=== PATIENT | female | born 1940 | race Caucasian/White ===

== ENCOUNTER 2021-06-01 18:50 | Inpatient (IN) | payer MEDICARE ==
[~2021-06-01] VITALS: Ht 157.5 cm; Wt 67.8 kg
[2021-06-01] MEDS ORDERED: pantoprazole 40MG/NS 100ML BAG 100 ML IV ONE (18:55)
[2021-06-01] MEDS ORDERED: pantoprazole IV 80 MG in normal saline 100ml IV soln 100 ML IV ONE (18:55)
[2021-06-01] MEDS ORDERED: pantoprazole 40 MG vial IV ONE (19:20)
[2021-06-01 19:42] LABS: BASOPHILS % (AUTO) 0.2 % (0-1); EOSINOPHILS % (AUTO) 0.2 % (0-6); HEMOGLOBIN 7.4 g/dl (12.0-16.0); LYMPHOCYTES # (AUTO) 0.9 X10'3 (1.1-4.8); LYMPHOCYTES % (AUTO) 17.9 % (21-51); MEAN CORPUSCULAR HEMOGLOBIN 32.4 PG (27.0-31.0); MEAN CORPUSCULAR HGB CONC 33.4 g/dL (33.0-36.5); MEAN CORPUSCULAR VOLUME 96.9 FL (78-98); MONOCYTES # (AUTO) 0.1 X10'3 (0-0.9); MONOCYTES % (AUTO) 2.1 % (2-12); NEUTROPHILS # (AUTO) 4.2 X10'3 (1.8-7.7); NEUTROPHILS % (AUTO) 79.6 % (42-75); PLATELET COUNT 110 X10'3 (140-440); RED BLOOD COUNT 2.27 X10'6 (4.20-5.60); RED CELL DISTRIBUTION WIDTH 15.7 % (11.5-14.5); WHITE BLOOD COUNT 5.3 X10'3 (4.5-11.0)
[2021-06-01 19:56] LABS: CLARITY,URINE SLIGHTLY CLOUDY (Clear); COLOR,URINE STRAW (Yellow); GLUCOSE, URINE NEGATIVE (Neg); KETONES,URINE NEGATIVE (Neg); LEUKOCYTE ESTERASE ,URINE SMALL (Neg); NITRITES, URINE NEGATIVE (Neg); OCCULT BLOOD,URINE MODERATE (Neg); PROTEIN,URINE 100 mg/dl (Neg); UA COLLECTION TYPE FOLEY CATH; UROBILINOGEN,URINE 0.2 E.U/dL (0.2-1.0)
[2021-06-01 19:58] LABS: PARTIAL THROMBOPLASTIN TIME 27 SECONDS (22-32)
[2021-06-01 19:58] LABS: SQUAMOUS EPITHELIAL CELL,UR FEW /LPF (FEW)
[2021-06-01 19:59] LABS: WBC,URINE 0-4 /HPF (0-4)
[2021-06-01 20:01] LABS: AMORPHOUS URATES 1+; BACTERIA,URINE NONE SEEN /HPF (Neg)
[2021-06-01 20:21] LABS: ALANINE AMINOTRANSFERASE 9 U/L (12-78); ALBUMIN 1.9 G/DL (3.4-5.0); ALKALINE PHOSPHATASE 42 IU/L (46-116); ANION GAP 23 (8-16); ASPARTATE AMINO TRANSFERASE 13 U/L (10-37); BILIRUBIN,TOTAL 0.4 MG/DL (0.1-1.0); CALCIUM 9.5 MG/DL (8.5-10.1); CHLORIDE 94 MMOL/L (99-107); CREATININE 18.41 MG/DL (0.40-0.90); GLUCOSE 80 MG/DL (70-104); POTASSIUM 5.9 MMOL/L (3.5-5.1); SODIUM 127 MMOL/L (135-145); eGFR 2 ML/MIN
[2021-06-01 20:30] LABS: ALBUMIN/GLOBULIN RATIO 0.2 (1.1-1.5); BLOOD UREA NITROGEN 180 MG/DL (7-18); BUN/CREATININE RATIO 9.8 (6.6-38.0); TOTAL PROTEIN 13.7 G/DL (6.4-8.2)
--- NOTE | 2021-06-01 20:33 | NUR ---
LAB CALLED CRITICAL CO2 10.4; RN NOTIFIED
[2021-06-01 20:34] LABS: TOTAL CARBON DIOXIDE 10.4 MMOL/L (24-32)
[2021-06-01] MEDS ORDERED: calcium chloride 100 MG/1 ML inj IV ONE (21:05)
[2021-06-01 21:56] LABS: ABG BASE EXCESS -16.2 mmol/L (-2.0-2.0); ABG OXYGEN SATURATION 96.8 % (94-97); ABG PO2 (T) 98.4 mmHg (75.0-100.0); FCOHb 0.9 % (0.0-3.9); FMetHb 0.3 % (0.0-1.5); FO2Hb 95.6 % (94-97); TOTAL HEMOGLOBIN 7.5 G/dl (12.0-16.0)
[2021-06-01 22:17] LABS: RED BLOOD COUNT 2.11 X10'6 (4.20-5.60); RETICULOCYTE % (AUTO) 1.1 % (0.5-1.5)
[2021-06-01 22:23] LABS: % IRON SATURATION 449 % (11-46); IRON 579 UG/DL (49-151); TOTAL IRON BINDING CAPACITY 129 UG/DL (259-388)
[2021-06-01 22:33] LABS: PHOSPHORUS 9.4 MG/DL (2.3-4.5)
[2021-06-01] MEDS: sodium bicarbonate (8.4%) inj. 150 MEQ in dextrose 5%-water 1,000 ML IV SCH (23:29)
[2021-06-02] MEDS: heparin, porcine 5000 units/ml vial SQ SCH ×3 (00:34→15:57)
[2021-06-02 01:13] LABS: CREATINE KINASE 144 U/L (26-192)
[2021-06-02] MEDS ORDERED: CLOT30CR19 TP (01:45)
[2021-06-02] MEDS ORDERED: LOSA50TA64 PO (01:45)
[2021-06-02] MEDS ORDERED: SUCR1TAB PO (01:45)
[2021-06-02] MEDS ORDERED: RALO60TA13 PO (01:45)
[2021-06-02] MEDS ORDERED: ROSU20TA31 PO (01:45)
[2021-06-02] MEDS ORDERED: OMEP40CA21 PO (01:45)
[2021-06-02] MEDS ORDERED: LEVO75TA7 PO (01:45)
[2021-06-02 04:43] LABS: BASOPHILS % (AUTO) 0.4 % (0-1); EOSINOPHILS % (AUTO) 0.3 % (0-6); LYMPHOCYTES # (AUTO) 0.8 X10'3 (1.1-4.8); LYMPHOCYTES % (AUTO) 14.5 % (21-51); MEAN CORPUSCULAR HEMOGLOBIN 32.4 PG (27.0-31.0); MEAN CORPUSCULAR HGB CONC 34.5 g/dL (33.0-36.5); MEAN PLATELET VOLUME 7.5 FL (7.4-10.4); MONOCYTES # (AUTO) 0.1 X10'3 (0-0.9); MONOCYTES % (AUTO) 2.2 % (2-12); NEUTROPHILS # (AUTO) 4.3 X10'3 (1.8-7.7); NEUTROPHILS % (AUTO) 82.6 % (42-75); PLATELET COUNT 108 X10'3 (140-440); RED BLOOD COUNT 2.12 X10'6 (4.20-5.60); RED CELL DISTRIBUTION WIDTH 16.2 % (11.5-14.5); WHITE BLOOD COUNT 5.2 X10'3 (4.5-11.0)
[2021-06-02 04:46] LABS: HEMOGLOBIN 6.9 g/dl (12.0-16.0)
[2021-06-02 04:47] LABS: HEMATOCRIT 19.9 % (35.0-45.0)
--- NOTE | 2021-06-02 04:59 | NUR ---
PAGE TO DR. COHEN WITH CRITICAL LAB VALUES PAGER ID: [phone] MESSAGE: BED #4 [facility]. CRITICAL AM LABS WITH HGB 6.9 AND HEMATOCRIT 19.9 THANKS, ALEX 0646
[2021-06-02 05:10] LABS: ALANINE AMINOTRANSFERASE 9 U/L (12-78); ALBUMIN 1.7 G/DL (3.4-5.0); ALKALINE PHOSPHATASE 41 IU/L (46-116); ANION GAP 20 (8-16); ASPARTATE AMINO TRANSFERASE 15 U/L (10-37); BILIRUBIN,TOTAL 0.5 MG/DL (0.1-1.0); CALCIUM 8.8 MG/DL (8.5-10.1); CHLORIDE 93 MMOL/L (99-107); GLUCOSE 142 MG/DL (70-104); MAGNESIUM 1.3 MG/DL (1.5-2.4); PHOSPHORUS 8.9 MG/DL (2.3-4.5); POTASSIUM 4.6 MMOL/L (3.5-5.1); SODIUM 128 MMOL/L (135-145); TOTAL CARBON DIOXIDE 15.1 MMOL/L (24-32); eGFR 2 ML/MIN
[2021-06-02 05:11] LABS: ALBUMIN/GLOBULIN RATIO 0.2 (1.1-1.5); BLOOD UREA NITROGEN 155 MG/DL (7-18); BUN/CREATININE RATIO 9.1 (6.6-38.0); TOTAL PROTEIN 12.5 G/DL (6.4-8.2)
--- NOTE | 2021-06-02 08:21 | NUR ---
dr moise at . verbal order to give pt epo 20,000 x 1. ok to downgrade to pcu. cn notified
[2021-06-02] MEDS ORDERED: EPOETIN ALFA-EPBX 20,000 UNIT/ML 1 ML MDV SQ ONE (08:30)
[2021-06-02 11:39] LABS: CLARITY,URINE SLIGHTLY CLOUDY (Clear); COLOR,URINE STRAW (Yellow); GLUCOSE, URINE NEGATIVE (Neg); KETONES,URINE NEGATIVE (Neg); LEUKOCYTE ESTERASE ,URINE SMALL (Neg); NITRITES, URINE NEGATIVE (Neg); OCCULT BLOOD,URINE LARGE (Neg); PROTEIN,URINE 30 mg/dl (Neg); UA COLLECTION TYPE FOLEY CATH; UROBILINOGEN,URINE 0.2 E.U/dL (0.2-1.0)
[2021-06-02 11:53] LABS: TOTAL PROTEIN,URINE RANDOM 111.5 MG/DL
[2021-06-02 12:02] LABS: SQUAMOUS EPITHELIAL CELL,UR FEW /LPF (FEW)
[2021-06-02 12:04] LABS: BACTERIA,URINE FEW /HPF (Neg)
[2021-06-02] MEDS: sodium bicarbonate (8.4%) inj. 150 MEQ in dextrose 5%-water 1,000 ML IV SCH ×3 (12:30→20:32)
[2021-06-02 13:17] LABS: % IRON SATURATION 399 % (11-46); IRON 475 UG/DL (49-151); TOTAL IRON BINDING CAPACITY 119 UG/DL (259-388)
[2021-06-02 13:24] LABS: UA EOSINOPHILS NO EOS /HPF
--- NOTE | 2021-06-02 15:25 | NUR ---
CALL DAUGHTER VONNIE BARKER [phone] JANE [phone]
--- NOTE | 2021-06-02 15:33 | NUR ---
PT ASSISTED TO POSIITION OF COMFORT.
[2021-06-02 16:35] LABS: ALANINE AMINOTRANSFERASE 11 U/L (12-78); ALBUMIN 1.5 G/DL (3.4-5.0); ALBUMIN/GLOBULIN RATIO 0.2 (1.1-1.5); ALKALINE PHOSPHATASE 40 IU/L (46-116); ANION GAP 17 (8-16); ASPARTATE AMINO TRANSFERASE 18 U/L (10-37); BILIRUBIN,TOTAL 0.4 MG/DL (0.1-1.0); CALCIUM 8.2 MG/DL (8.5-10.1); CHLORIDE 95 MMOL/L (99-107); CREATININE 17.94 MG/DL (0.40-0.90); GLUCOSE 146 MG/DL (70-104); POTASSIUM 4.7 MMOL/L (3.5-5.1); SODIUM 131 MMOL/L (135-145); TOTAL PROTEIN 11.3 G/DL (6.4-8.2); eGFR 2 ML/MIN
[2021-06-02 16:36] LABS: BLOOD UREA NITROGEN 174 MG/DL (7-18); BUN/CREATININE RATIO 9.7 (6.6-38.0)
[2021-06-03] VITALS (9 sets, daily range): BP systolic 134–174; BP diastolic 59–91
[2021-06-03] MEDS: heparin, porcine 5000 units/ml vial SQ SCH ×2 (00:21→08:00)
[2021-06-03] MEDS: sodium bicarbonate (8.4%) inj. 150 MEQ in dextrose 5%-water 1,000 ML IV SCH ×3 (03:50→23:51)
[2021-06-03 06:43] LABS: BASOPHILS % (AUTO) 0.1 % (0-1); EOSINOPHILS # (AUTO) 0.1 X10'3 (0-0.9); EOSINOPHILS % (AUTO) 1.5 % (0-6); LYMPHOCYTES # (AUTO) 0.5 X10'3 (1.1-4.8); LYMPHOCYTES % (AUTO) 14.4 % (21-51); MEAN CORPUSCULAR HEMOGLOBIN 32.2 PG (27.0-31.0); MEAN CORPUSCULAR VOLUME 92.2 FL (78-98); MEAN PLATELET VOLUME 7.4 FL (7.4-10.4); MONOCYTES % (AUTO) 1.3 % (2-12); NEUTROPHILS # (AUTO) 2.8 X10'3 (1.8-7.7); NEUTROPHILS % (AUTO) 82.7 % (42-75); PLATELET COUNT 86 X10'3 (140-440); RED BLOOD COUNT 1.92 X10'6 (4.20-5.60); RED CELL DISTRIBUTION WIDTH 16.1 % (11.5-14.5); WHITE BLOOD COUNT 3.4 X10'3 (4.5-11.0)
--- NOTE | 2021-06-03 06:51 | NUR ---
Patient in room PCU 3014. I have received report from Glory MATTHEW and had the opportunity to ask questions and assume patient care.
[2021-06-03 07:25] LABS: HEMOGLOBIN 6.2 g/dl (12.0-16.0)
[2021-06-03 07:26] LABS: HEMATOCRIT 17.7 % (35.0-45.0)
[2021-06-03 07:28] LABS: ANISOCYTOSIS 1+; HYPOCHROMASIA 1+; PLATELET ESTIMATE DECREASED; POLYCHROMASIA 1+
[2021-06-03 07:29] LABS: ROULEAUX 1+; TARGET CELLS 1+
[2021-06-03 08:06] LABS: ALANINE AMINOTRANSFERASE 9 U/L (12-78); ALBUMIN 1.4 G/DL (3.4-5.0); ALBUMIN/GLOBULIN RATIO 0.2 (1.1-1.5); ALKALINE PHOSPHATASE 36 IU/L (46-116); ANION GAP 18 (8-16); ASPARTATE AMINO TRANSFERASE 18 U/L (10-37); BILIRUBIN,TOTAL 0.4 MG/DL (0.1-1.0); CALCIUM 7.7 MG/DL (8.5-10.1); CHLORIDE 92 MMOL/L (99-107); GLUCOSE 164 MG/DL (70-104); MAGNESIUM 1.3 MG/DL (1.5-2.4); SODIUM 132 MMOL/L (135-145); TOTAL CARBON DIOXIDE 22.4 MMOL/L (24-32); TOTAL PROTEIN 10.7 G/DL (6.4-8.2); eGFR 2 ML/MIN
[2021-06-03 08:10] LABS: BLOOD UREA NITROGEN 166 MG/DL (7-18); BUN/CREATININE RATIO 9.5 (6.6-38.0)
[2021-06-03] MEDS ORDERED: heparin 1,000 units/ml 10ml inj HE ONE (10:35)
[2021-06-03] MEDS ORDERED: normal saline 1000ml 100 ML IV PRN (10:35)
[2021-06-03] MEDS ORDERED: EPOETIN ALFA-EPBX 20,000 UNIT/ML 1 ML MDV IV ONE (10:35)
[2021-06-03] MEDS: pantoprazole 40mg Tablet.DR PO SCH (11:46)
[2021-06-03] MEDS: atorvastatin 20mg tablet PO SCH (11:46)
[2021-06-03] MEDS: acetaminophen 325mg tablet PO PRN (14:04)
[2021-06-03] MEDS: HYDROcodone/acetaminophen 5mg/325mg tablet PO PRN (16:21)
[2021-06-03 17:35] LABS: HEMATOCRIT 22.7 % (35.0-45.0); HEMOGLOBIN 8.1 g/dl (12.0-16.0); MEAN CORPUSCULAR HEMOGLOBIN 31.4 PG (27.0-31.0); MEAN CORPUSCULAR HGB CONC 35.6 g/dL (33.0-36.5); MEAN CORPUSCULAR VOLUME 88.2 FL (78-98); PLATELET COUNT 85 X10'3 (140-440); RED BLOOD COUNT 2.57 X10'6 (4.20-5.60); RED CELL DISTRIBUTION WIDTH 16.9 % (11.5-14.5)
--- NOTE | 2021-06-03 18:18 | NUR ---
Problems reprioritized. Patient report given, questions answered & plan of care reviewed with ASHLEY. Day LOT ATTENDANT
--- NOTE | 2021-06-03 19:25 | NUR ---
Patent Heart rate was between 190- 194, encouraged Valga Maneuver without success. C/O N/V and PRN Zofran administered with positive effect / decreased heart rate to 110 and patient verbalized feeling better.
--- NOTE | 2021-06-03 19:41 | NUR ---
ID: [id number] MESSAGE: CELSA ON [phone], PATIENT IN ROOM 3014A HAS RAPID HR TO 190, VAGAL MANEUVER DROPS HR TO 110 THEN BACK INTO SVT, NO IVP MEDS AVAILABLE. PLEASE CALL WITH ORDER. THX
[2021-06-03] MEDS: ondansetron/PF 4mg/2ml inj IV PRN (19:47)
[2021-06-03] MEDS ORDERED: adenosine 3mg/ml 2ml vial IV ONE (20:00)
[2021-06-04] VITALS: BP 144/78
[2021-06-04] MEDS: sodium bicarbonate (8.4%) inj. 150 MEQ in dextrose 5%-water 1,000 ML IV SCH ×3 (02:50→18:10)
[2021-06-04] MEDS: ondansetron/PF 4mg/2ml inj IV PRN ×2 (04:25→07:19)
--- NOTE | 2021-06-04 06:58 | NUR ---
Patient in room PCU 3014. I have received report from Christina MATTHEW and had the opportunity to ask questions and assume patient care.
[2021-06-04 07:00] VITALS: BP 155/79
[2021-06-04 07:14] LABS: BASOPHILS % (AUTO) 0.2 % (0-1); EOSINOPHILS % (AUTO) 0.6 % (0-6); HEMOGLOBIN 7.4 g/dl (12.0-16.0); LYMPHOCYTES # (AUTO) 0.5 X10'3 (1.1-4.8); LYMPHOCYTES % (AUTO) 11.4 % (21-51); MEAN CORPUSCULAR HEMOGLOBIN 31.5 PG (27.0-31.0); MEAN CORPUSCULAR HGB CONC 35.2 g/dL (33.0-36.5); MEAN CORPUSCULAR VOLUME 89.5 FL (78-98); MEAN PLATELET VOLUME 7.6 FL (7.4-10.4); MONOCYTES # (AUTO) 0.1 X10'3 (0-0.9); MONOCYTES % (AUTO) 1.7 % (2-12); NEUTROPHILS # (AUTO) 3.5 X10'3 (1.8-7.7); NEUTROPHILS % (AUTO) 86.1 % (42-75); PLATELET COUNT 78 X10'3 (140-440); RED BLOOD COUNT 2.36 X10'6 (4.20-5.60); RED CELL DISTRIBUTION WIDTH 17.6 % (11.5-14.5); WHITE BLOOD COUNT 4.1 X10'3 (4.5-11.0)
[2021-06-04] MEDS: HYDROcodone/acetaminophen 5mg/325mg tablet PO PRN (07:19)
[2021-06-04 07:29] LABS: HEMATOCRIT 21.2 % (35.0-45.0)
[2021-06-04 07:41] LABS: ALANINE AMINOTRANSFERASE 9 U/L (12-78); ALBUMIN 1.3 G/DL (3.4-5.0); ALBUMIN/GLOBULIN RATIO 0.1 (1.1-1.5); ALKALINE PHOSPHATASE 40 IU/L (46-116); ANION GAP 13 (8-16); ASPARTATE AMINO TRANSFERASE 20 U/L (10-37); BILIRUBIN,TOTAL 0.4 MG/DL (0.1-1.0); CALCIUM 6.7 MG/DL (8.5-10.1); CHLORIDE 89 MMOL/L (99-107); CREATININE 16.76 MG/DL (0.40-0.90); GLUCOSE 128 MG/DL (70-104); LACTATE DEHYDROGENASE 175 U/L (81-234); MAGNESIUM 1.1 MG/DL (1.5-2.4); PHOSPHORUS 7.4 MG/DL (2.3-4.5); POTASSIUM 3.7 MMOL/L (3.5-5.1); SODIUM 132 MMOL/L (135-145); TOTAL PROTEIN 10.2 G/DL (6.4-8.2); eGFR 2 ML/MIN
[2021-06-04 07:42] LABS: BLOOD UREA NITROGEN 154 MG/DL (7-18)
[2021-06-04] MEDS: atorvastatin 20mg tablet PO SCH (09:31)
[2021-06-04] MEDS: pantoprazole 40mg Tablet.DR PO SCH (09:31)
[2021-06-04] MEDS: levoTHYROXINE 75mcg tablet PO SCH (09:31)
[2021-06-04] MEDS ORDERED: magnesium hydroxide 30ml (MOM) UD suspension PO ONE (10:00)
[2021-06-04] MEDS ORDERED: EPOETIN ALFA-EPBX 20,000 UNIT/ML 1 ML MDV IV ONE (11:05)
[2021-06-04] MEDS ORDERED: LIDOcaine 1% W/epiNEPHrine 1:200,000 10ml vial ONE (11:10)
[2021-06-04] MEDS ORDERED: heparin 1,000unit/ml 10ml vial 10 ML ONE (11:10)
[2021-06-04] MEDS ORDERED: heparin 1,000 units/ml 10ml inj HE ONE ×2 (11:10)
[2021-06-04] MEDS ORDERED: midazolam 1 mg/ML 2ml injection ONE (11:11)
[2021-06-04] MEDS ORDERED: fentaNYL/PF 50MCG/1 ML 2ML syringe ONE (11:11)
[2021-06-04] MEDS ORDERED: magnesium 2GM in 50ml NS 50 ML IV PRN (16:00)
[2021-06-04] MEDS ORDERED: magnesium 4gm in 100ml NS 100 ML IV PRN (16:00)
[2021-06-04] MEDS: nystatin 15 GM powder TP SCH ×2 (16:30→21:10)
[2021-06-04] MEDS: sucralfate 1 gm tablet PO SCH ×3 (16:30→21:05)
[2021-06-04 18:00] VITALS: BP 150/66
[2021-06-04 18:01] VITALS: BP 167/79
[2021-06-04 18:07] VITALS: BP 139/78
--- NOTE | 2021-06-04 18:18 | NUR ---
Problems reprioritized. Patient report given, questions answered & plan of care reviewed with John.
--- NOTE | 2021-06-04 18:20 | NUR ---
Patient in room PCU 3014. I have received report from Meg RN and had the opportunity to ask questions and assume patient care.
[2021-06-04] MEDS: K and/or MAG REPLACEMENT MC SCH (20:00)
[2021-06-04] MEDS: acetaminophen 325mg tablet PO PRN (21:05)
[2021-06-04] MEDS: clotrimazole topical cream 15gm tube TP SCH (21:06)
[2021-06-04 23:00] VITALS: BP 155/75
[2021-06-05] VITALS (9 sets, daily range): BP systolic 155–179; BP diastolic 74–97
[2021-06-05] MEDS: HYDROcodone/acetaminophen 5mg/325mg tablet PO PRN ×3 (00:05→17:04)
[2021-06-05] MEDS: sodium bicarbonate (8.4%) inj. 150 MEQ in dextrose 5%-water 1,000 ML IV SCH ×2 (00:40→09:09)
[2021-06-05] MEDS: ondansetron/PF 4mg/2ml inj IV PRN (05:09)
--- NOTE | 2021-06-05 06:30 | NUR ---
Problems reprioritized. Patient report given, questions answered & plan of care reviewed with Lisa and TIFF Bernstein.
--- NOTE | 2021-06-05 06:39 | NUR ---
Patient in room PCU 3014. I have received report from Juma MATTHEW and had the opportunity to ask questions and assume patient care.
--- NOTE | 2021-06-05 07:19 | NUR ---
Patient in room PCU 3014. I have received report from John MATTHEW and had the opportunity to ask questions and assume patient care.
[2021-06-05 07:44] LABS: BASOPHILS % (AUTO) 0 % (0-1); EOSINOPHILS % (AUTO) 0.2 % (0-6); LYMPHOCYTES # (AUTO) 0.3 X10'3 (1.1-4.8); LYMPHOCYTES % (AUTO) 6.9 % (21-51); MEAN CORPUSCULAR HEMOGLOBIN 31.1 PG (27.0-31.0); MEAN CORPUSCULAR HGB CONC 34.8 g/dL (33.0-36.5); MEAN CORPUSCULAR VOLUME 89.3 FL (78-98); MEAN PLATELET VOLUME 7.8 FL (7.4-10.4); MONOCYTES # (AUTO) 0.1 X10'3 (0-0.9); MONOCYTES % (AUTO) 1.5 % (2-12); NEUTROPHILS # (AUTO) 3.8 X10'3 (1.8-7.7); NEUTROPHILS % (AUTO) 91.4 % (42-75); PLATELET COUNT 76 X10'3 (140-440); RED BLOOD COUNT 2.25 X10'6 (4.20-5.60); RED CELL DISTRIBUTION WIDTH 17.4 % (11.5-14.5); WHITE BLOOD COUNT 4.1 X10'3 (4.5-11.0)
[2021-06-05 07:58] LABS: HEMATOCRIT 20.1 % (35.0-45.0)
[2021-06-05] MEDS ORDERED: heparin 1,000unit/ml 10ml vial 10 ML IV ONE (08:00)
[2021-06-05] MEDS ORDERED: EPOETIN ALFA-EPBX 20,000 UNIT/ML 1 ML MDV IV ONE (08:00)
[2021-06-05] MEDS ORDERED: albumin (human) 25% 100ml IV 100 ML IV PRN (08:00)
[2021-06-05] MEDS ORDERED: heparin 1,000 units/ml 10ml inj HE ONE ×2 (08:00)
[2021-06-05] MEDS ORDERED: heparin 1,000 units/ml 10ml inj IV ONE (08:00)
[2021-06-05] MEDS: K and/or MAG REPLACEMENT MC SCH ×2 (08:00→20:00)
[2021-06-05 08:11] LABS: % IRON SATURATION 577 % (11-46); IRON 583 UG/DL (49-151); TOTAL IRON BINDING CAPACITY 101 UG/DL (259-388)
[2021-06-05 08:16] LABS: ALANINE AMINOTRANSFERASE 17 U/L (12-78); ALBUMIN 1.4 G/DL (3.4-5.0); ALBUMIN/GLOBULIN RATIO 0.2 (1.1-1.5); ALKALINE PHOSPHATASE 42 IU/L (46-116); ANION GAP 6 (8-16); ASPARTATE AMINO TRANSFERASE 27 U/L (10-37); BILIRUBIN,TOTAL 0.3 MG/DL (0.1-1.0); BLOOD UREA NITROGEN 61 MG/DL (7-18); BUN/CREATININE RATIO 7.5 (6.6-38.0); CALCIUM 7.3 MG/DL (8.5-10.1); CHLORIDE 92 MMOL/L (99-107); CREATININE 8.17 MG/DL (0.40-0.90); FERRITIN 957 NG/ML (8-252); GLUCOSE 143 MG/DL (70-104); MAGNESIUM 3.3 MG/DL (1.5-2.4); PHOSPHORUS 4.8 MG/DL (2.3-4.5); POTASSIUM 3.7 MMOL/L (3.5-5.1); SODIUM 131 MMOL/L (135-145); TOTAL CARBON DIOXIDE 33.3 MMOL/L (24-32); TOTAL PROTEIN 10.6 G/DL (6.4-8.2); eGFR 5 ML/MIN
--- NOTE | 2021-06-05 08:56 | NUR ---
Order from Dr. Wakefield to infuse 1 unit PRBC due to H/H of 7.0/20.1
[2021-06-05] MEDS: sucralfate 1 gm tablet PO SCH ×4 (09:09→22:03)
[2021-06-05] MEDS: levoTHYROXINE 75mcg tablet PO SCH (09:10)
[2021-06-05] MEDS: atorvastatin 20mg tablet PO SCH (09:10)
[2021-06-05] MEDS: raloxifene 60mg tablet PO SCH (09:10)
[2021-06-05] MEDS: pantoprazole 40mg Tablet.DR PO SCH (09:10)
[2021-06-05] MEDS: nystatin 15 GM powder TP SCH ×3 (09:11→22:04)
[2021-06-05] MEDS: losartan 50mg tablet PO SCH (09:11)
[2021-06-05] MEDS: clotrimazole topical cream 15gm tube TP SCH ×2 (09:12→22:04)
[2021-06-05] MEDS ORDERED: mannitol 20% (100GM) 500ml IV soln IV ONE (10:25)
[2021-06-05 12:57] LABS: COMPLEMENT C3, SERUM 92 mg/dL (82-167); COMPLEMENT C4, SERUM 3 mg/dL (12-38)
[2021-06-05 15:55] LABS: HEMATOCRIT 24.5 % (35.0-45.0); MEAN CORPUSCULAR HEMOGLOBIN 30.5 PG (27.0-31.0); MEAN CORPUSCULAR HGB CONC 33.6 g/dL (33.0-36.5); MEAN CORPUSCULAR VOLUME 90.5 FL (78-98); MEAN PLATELET VOLUME 8.5 FL (7.4-10.4); PLATELET COUNT 93 X10'3 (140-440); RED CELL DISTRIBUTION WIDTH 18.5 % (11.5-14.5); WHITE BLOOD COUNT 4.4 X10'3 (4.5-11.0)
[2021-06-05 15:58] LABS: HEMOGLOBIN 8.2 g/dl (12.0-16.0)
[2021-06-05 18:23] LABS: A/G RATIO 0.3 (0.7-1.7); ALBUMIN 2.4 g/dL (2.9-4.4); BETA GLOBULIN 0.8 g/dL (0.7-1.3); GAMMA GLOBULIN 5.2 g/dL (0.4-1.8); GLOBULIN, TOTAL 7.1 g/dL (2.2-3.9); M-SPIKE 4.9 g/dL (Not Observed); PROTEIN, TOTAL, SERUM 9.5 g/dL (6.0-8.5)
--- NOTE | 2021-06-05 18:39 | NUR ---
Problems reprioritized. Patient report given, questions answered & plan of care reviewed with Juma[].
[2021-06-05] MEDS: cloNIDine 0.1 mg tablet PO SCH (22:03)
[2021-06-06 02:00] VITALS: BP 148/88
[2021-06-06 06:00] VITALS: BP 185/95
--- NOTE | 2021-06-06 07:05 | NUR ---
Patient in room [facility] 3013. I have received report from Sondra MATTHEW traveler and had the opportunity to ask questions and assume patient care. Addendum: 06/06/21 at 0706 by Sherley Torres RN [facility] 3014A
[2021-06-06] MEDS: clotrimazole topical cream 15gm tube TP SCH ×2 (08:00→20:04)
[2021-06-06] MEDS: nystatin 15 GM powder TP SCH ×3 (08:00→20:04)
[2021-06-06] MEDS: cloNIDine 0.1 mg tablet PO SCH ×3 (08:00→20:04)
[2021-06-06] MEDS: K and/or MAG REPLACEMENT MC SCH ×2 (08:00→20:00)
[2021-06-06] MEDS: atorvastatin 20mg tablet PO SCH (08:03)
[2021-06-06] MEDS: sucralfate 1 gm tablet PO SCH ×4 (08:03→20:03)
[2021-06-06] MEDS: pantoprazole 40mg Tablet.DR PO SCH (08:03)
[2021-06-06] MEDS: levoTHYROXINE 75mcg tablet PO SCH (08:04)
[2021-06-06] MEDS: losartan 50mg tablet PO SCH (08:05)
[2021-06-06] MEDS: raloxifene 60mg tablet PO SCH (08:06)
[2021-06-06 08:28] LABS: BASOPHILS % (AUTO) 0.1 % (0-1); EOSINOPHILS % (AUTO) 1.5 % (0-6); HEMOGLOBIN 7.3 g/dl (12.0-16.0); LYMPHOCYTES # (AUTO) 0.5 X10'3 (1.1-4.8); LYMPHOCYTES % (AUTO) 17.7 % (21-51); MEAN CORPUSCULAR HEMOGLOBIN 30.2 PG (27.0-31.0); MEAN CORPUSCULAR HGB CONC 33.2 g/dL (33.0-36.5); MEAN CORPUSCULAR VOLUME 91.1 FL (78-98); MONOCYTES % (AUTO) 1.7 % (2-12); NEUTROPHILS # (AUTO) 2.3 X10'3 (1.8-7.7); PLATELET COUNT 62 X10'3 (140-440); RED CELL DISTRIBUTION WIDTH 18.4 % (11.5-14.5); WHITE BLOOD COUNT 2.8 X10'3 (4.5-11.0)
[2021-06-06 08:49] LABS: HEMATOCRIT 21.9 % (35.0-45.0)
[2021-06-06 08:52] LABS: ALANINE AMINOTRANSFERASE 18 U/L (12-78); ALBUMIN 1.3 G/DL (3.4-5.0); ALBUMIN/GLOBULIN RATIO 0.1 (1.1-1.5); ALKALINE PHOSPHATASE 47 IU/L (46-116); ANION GAP 5 (8-16); ASPARTATE AMINO TRANSFERASE 31 U/L (10-37); BILIRUBIN,TOTAL 0.4 MG/DL (0.1-1.0); BLOOD UREA NITROGEN 35 MG/DL (7-18); BUN/CREATININE RATIO 6.3 (6.6-38.0); CALCIUM 7.5 MG/DL (8.5-10.1); CHLORIDE 98 MMOL/L (99-107); CREATININE 5.54 MG/DL (0.40-0.90); GLUCOSE 89 MG/DL (70-104); MAGNESIUM 2.7 MG/DL (1.5-2.4); PHOSPHORUS 4.6 MG/DL (2.3-4.5); POTASSIUM 4.3 MMOL/L (3.5-5.1); SODIUM 132 MMOL/L (135-145); TOTAL CARBON DIOXIDE 29.2 MMOL/L (24-32); TOTAL PROTEIN 10.3 G/DL (6.4-8.2); eGFR 7 ML/MIN
[2021-06-06] MEDS ORDERED: EPOETIN ALFA-EPBX 20,000 UNIT/ML 1 ML MDV IV ONE (09:35)
[2021-06-06] MEDS ORDERED: albumin (human) 25% 100ml IV 100 ML IV PRN (09:35)
[2021-06-06] MEDS ORDERED: heparin 1,000 units/ml 10ml inj IV ONE ×2 (09:35)
[2021-06-06] MEDS ORDERED: heparin 1,000 units/ml 10ml inj HE ONE ×2 (09:40)
[2021-06-06 11:00] VITALS: BP 129/75
[2021-06-06 12:32] LABS: HBSAG SCREEN Negative (Negative); HEP B CORE AB, TOT Negative (Negative)
[2021-06-06 12:49] LABS: ANISOCYTOSIS 2+; NUCLEATED RED BLOOD CELLS 1 /100WBC (0-0); PLATELET ESTIMATE DECREASED; TOTAL CELLS COUNTED 100
--- NOTE | 2021-06-06 14:41 | NUR ---
Initial: Pt admit for renal failure, started on dialysis this admit. Pt on a renal diet and eating poorly with average 0-25% PO intake not meeting estimated nutrient needs. Noted pt receiving mechanical soft grind all food from dietary, pending documentation of PO intake since texture modification. Attempted visit with pt at bedside however pt was receiving dialysis and RD was asked to come back another time. Recommend Nepro with meals to assist with meeting estimated nutrient needs, to be sent pending physician approval in EMR. LB 06/04. Will continue to follow closely. Recommendations: 1) Continue renal diet; MM5 per dietary-monitor need for texture modification 2) Nepro TID, pending physician approval in EMR 3) Bowel care PRN 4) Scaled weights with dialysis Addendum: 06/06/21 at [address] Amended: Links added.
[2021-06-06 15:00] VITALS: BP 165/66
[2021-06-06 18:00] VITALS: BP 150/61
[2021-06-06] MEDS: NUT.TX.IMP.RENAL FXN,LAC-REDUC (Nepro) 237 ML VANILLA PO SCH (18:00)
[2021-06-06 22:00] VITALS: BP 182/75
[2021-06-07 02:00] VITALS: BP 189/79
--- NOTE | 2021-06-07 03:12 | NUR ---
Patient`s BP at 0220 184/74, MD Luis called, and message left on voicemail for a callback. At 0235 BP at 185/85, MD Luis called and message left on voicemail. At 0255, patient`s BP 189/80, patient remains asymptomatic, no headache or respiratory distress complaints. MD Luis called and message left on voicemail. Callback still awaited. Charge nurse notified.
[2021-06-07 06:00] VITALS: BP 188/72
[2021-06-07 06:30] LABS: BASOPHILS % (AUTO) 0.1 % (0-1); EOSINOPHILS % (AUTO) 1.4 % (0-6); HEMATOCRIT 23.3 % (35.0-45.0); LYMPHOCYTES # (AUTO) 0.6 X10'3 (1.1-4.8); LYMPHOCYTES % (AUTO) 17.3 % (21-51); MEAN CORPUSCULAR HEMOGLOBIN 30.7 PG (27.0-31.0); MEAN CORPUSCULAR HGB CONC 34.1 g/dL (33.0-36.5); MEAN CORPUSCULAR VOLUME 90.1 FL (78-98); MEAN PLATELET VOLUME 8.3 FL (7.4-10.4); MONOCYTES # (AUTO) 0.1 X10'3 (0-0.9); MONOCYTES % (AUTO) 1.6 % (2-12); NEUTROPHILS # (AUTO) 2.7 X10'3 (1.8-7.7); NEUTROPHILS % (AUTO) 79.6 % (42-75); PLATELET COUNT 75 X10'3 (140-440); RED BLOOD COUNT 2.59 X10'6 (4.20-5.60); WHITE BLOOD COUNT 3.4 X10'3 (4.5-11.0)
[2021-06-07 06:45] LABS: ALANINE AMINOTRANSFERASE 22 U/L (12-78); ALBUMIN 1.3 G/DL (3.4-5.0); ALBUMIN/GLOBULIN RATIO 0.1 (1.1-1.5); ALKALINE PHOSPHATASE 65 IU/L (46-116); ANION GAP 6 (8-16); ASPARTATE AMINO TRANSFERASE 33 U/L (10-37); BILIRUBIN,TOTAL 0.4 MG/DL (0.1-1.0); BLOOD UREA NITROGEN 28 MG/DL (7-18); BUN/CREATININE RATIO 6.3 (6.6-38.0); CALCIUM 7.8 MG/DL (8.5-10.1); CHLORIDE 97 MMOL/L (99-107); CREATININE 4.46 MG/DL (0.40-0.90); GLUCOSE 75 MG/DL (70-104); MAGNESIUM 2.3 MG/DL (1.5-2.4); PHOSPHORUS 3.8 MG/DL (2.3-4.5); POTASSIUM 4.5 MMOL/L (3.5-5.1); SODIUM 129 MMOL/L (135-145); TOTAL CARBON DIOXIDE 26.5 MMOL/L (24-32); eGFR 10 ML/MIN
[2021-06-07] MEDS: levoTHYROXINE 75mcg tablet PO SCH (07:34)
[2021-06-07] MEDS: pantoprazole 40mg Tablet.DR PO SCH (07:34)
[2021-06-07] MEDS: atorvastatin 20mg tablet PO SCH (07:35)
[2021-06-07] MEDS: sucralfate 1 gm tablet PO SCH ×4 (07:35→20:17)
[2021-06-07] MEDS: raloxifene 60mg tablet PO SCH (07:36)
[2021-06-07] MEDS: losartan 50mg tablet PO SCH (07:36)
[2021-06-07] MEDS: cloNIDine 0.1 mg tablet PO SCH ×3 (07:52→20:17)
[2021-06-07] MEDS: clotrimazole topical cream 15gm tube TP SCH ×2 (08:00→20:19)
[2021-06-07] MEDS: NUT.TX.IMP.RENAL FXN,LAC-REDUC (Nepro) 237 ML VANILLA PO SCH ×3 (08:00→18:01)
[2021-06-07] MEDS: nystatin 15 GM powder TP SCH ×3 (08:00→20:19)
[2021-06-07] MEDS: K and/or MAG REPLACEMENT MC SCH ×2 (08:13→20:00)
[2021-06-07 11:18] LABS: IMMUNOGLOBULIN A, QN, SERUM 13 mg/dL (64-422); IMMUNOGLOBULIN G, QN, SERUM 7884 mg/dL (586-1602); IMMUNOGLOBULIN M, QN, SERUM 9 mg/dL (26-217)
[2021-06-07 12:00] VITALS: BP 132/64
[2021-06-07 18:00] VITALS: BP 148/71
--- NOTE | 2021-06-07 18:01 | NUR ---
Problems reprioritized. Patient report given, questions answered & plan of care reviewed with Sondra RN.
[2021-06-07 18:02] VITALS: BP 131/78
[2021-06-07 22:00] VITALS: BP 161/68
[2021-06-08] VITALS (9 sets, daily range): BP systolic 132–160; BP diastolic 56–74
[2021-06-08 07:17] LABS: BASOPHILS % (AUTO) 0 % (0-1); EOSINOPHILS % (AUTO) 0.9 % (0-6); HEMATOCRIT 23.1 % (35.0-45.0); HEMOGLOBIN 7.9 g/dl (12.0-16.0); LYMPHOCYTES # (AUTO) 0.5 X10'3 (1.1-4.8); LYMPHOCYTES % (AUTO) 15.7 % (21-51); MEAN CORPUSCULAR HEMOGLOBIN 30.5 PG (27.0-31.0); MEAN CORPUSCULAR VOLUME 89.8 FL (78-98); MEAN PLATELET VOLUME 8.4 FL (7.4-10.4); MONOCYTES % (AUTO) 1.4 % (2-12); NEUTROPHILS # (AUTO) 2.4 X10'3 (1.8-7.7); PLATELET COUNT 75 X10'3 (140-440); RED BLOOD COUNT 2.57 X10'6 (4.20-5.60); RED CELL DISTRIBUTION WIDTH 17.5 % (11.5-14.5); WHITE BLOOD COUNT 2.9 X10'3 (4.5-11.0)
[2021-06-08 07:40] LABS: ALANINE AMINOTRANSFERASE 19 U/L (12-78); ALBUMIN 1.2 G/DL (3.4-5.0); ALBUMIN/GLOBULIN RATIO 0.1 (1.1-1.5); ALKALINE PHOSPHATASE 61 IU/L (46-116); ANION GAP 3 (8-16); ASPARTATE AMINO TRANSFERASE 22 U/L (10-37); BILIRUBIN,TOTAL 0.4 MG/DL (0.1-1.0); BLOOD UREA NITROGEN 46 MG/DL (7-18); BUN/CREATININE RATIO 7.7 (6.6-38.0); CALCIUM 8.2 MG/DL (8.5-10.1); CHLORIDE 95 MMOL/L (99-107); CREATININE 5.96 MG/DL (0.40-0.90); GLUCOSE 86 MG/DL (70-104); POTASSIUM 4.2 MMOL/L (3.5-5.1); SODIUM 125 MMOL/L (135-145); TOTAL CARBON DIOXIDE 26.7 MMOL/L (24-32); TOTAL PROTEIN 10.4 G/DL (6.4-8.2); eGFR 7 ML/MIN
[2021-06-08 07:42] LABS: MAGNESIUM 2.4 MG/DL (1.5-2.4); PHOSPHORUS 3.8 MG/DL (2.3-4.5)
[2021-06-08] MEDS ORDERED: heparin 1,000 units/ml 10ml inj IV ONE (07:45)
[2021-06-08] MEDS ORDERED: heparin 1,000unit/ml 10ml vial 10 ML IV ONE (07:45)
[2021-06-08] MEDS ORDERED: EPOETIN ALFA-EPBX 20,000 UNIT/ML 1 ML MDV IV ONE (07:45)
[2021-06-08] MEDS ORDERED: albumin (human) 25% 100ml IV 100 ML IV PRN (07:45)
[2021-06-08] MEDS ORDERED: heparin 1,000 units/ml 10ml inj HE ONE ×2 (07:50)
[2021-06-08 08:00] LABS: ANISOCYTOSIS 1+; LARGE PLATELETS FEW; PLATELET ESTIMATE DECREASED; TOTAL CELLS COUNTED 100
[2021-06-08] MEDS: K and/or MAG REPLACEMENT MC SCH ×2 (08:00→19:58)
[2021-06-08] MEDS: sucralfate 1 gm tablet PO SCH ×4 (08:13→19:59)
[2021-06-08] MEDS: pantoprazole 40mg Tablet.DR PO SCH (08:13)
[2021-06-08] MEDS: atorvastatin 20mg tablet PO SCH (08:13)
[2021-06-08] MEDS: losartan 50mg tablet PO SCH (08:14)
[2021-06-08] MEDS: levoTHYROXINE 75mcg tablet PO SCH (08:15)
[2021-06-08] MEDS: cloNIDine 0.1 mg tablet PO SCH ×3 (08:15→20:08)
[2021-06-08] MEDS: NUT.TX.IMP.RENAL FXN,LAC-REDUC (Nepro) 237 ML VANILLA PO SCH ×3 (08:15→19:57)
[2021-06-08] MEDS: nystatin 15 GM powder TP SCH ×3 (08:16→20:12)
[2021-06-08] MEDS: clotrimazole topical cream 15gm tube TP SCH ×2 (08:16→20:12)
[2021-06-08] MEDS ORDERED: tPA-cathflo 2 MG/2 ml IV flush IVF ONE (10:00)
[2021-06-08] MEDS: raloxifene 60mg tablet PO SCH (13:01)
--- NOTE | 2021-06-08 18:52 | NUR ---
Patient in room PCU 3022. I have received report from hiren welch and had the opportunity to ask questions and assume patient care.
--- NOTE | 2021-06-08 18:54 | NUR ---
Problems reprioritized. Patient report given, questions answered & plan of care reviewed with TIFF Bernstein.
[2021-06-09 02:05] VITALS: BP 142/85
[2021-06-09 06:00] VITALS: BP 141/67
--- NOTE | 2021-06-09 06:37 | NUR ---
Problems reprioritized. Patient report given, questions answered & plan of care reviewed with NORBERT MATTHEW.
[2021-06-09 06:53] LABS: BASOPHILS % (AUTO) 0.1 % (0-1); EOSINOPHILS % (AUTO) 1.4 % (0-6); HEMATOCRIT 22.2 % (35.0-45.0); HEMOGLOBIN 7.6 g/dl (12.0-16.0); LYMPHOCYTES # (AUTO) 0.5 X10'3 (1.1-4.8); LYMPHOCYTES % (AUTO) 18.1 % (21-51); MEAN CORPUSCULAR HGB CONC 34.3 g/dL (33.0-36.5); MEAN CORPUSCULAR VOLUME 90.3 FL (78-98); MEAN PLATELET VOLUME 8.9 FL (7.4-10.4); MONOCYTES # (AUTO) 0.1 X10'3 (0-0.9); MONOCYTES % (AUTO) 1.8 % (2-12); NEUTROPHILS # (AUTO) 2.2 X10'3 (1.8-7.7); NEUTROPHILS % (AUTO) 78.6 % (42-75); PLATELET COUNT 73 X10'3 (140-440); RED BLOOD COUNT 2.46 X10'6 (4.20-5.60); RED CELL DISTRIBUTION WIDTH 17.5 % (11.5-14.5); WHITE BLOOD COUNT 2.8 X10'3 (4.5-11.0)
[2021-06-09 07:08] LABS: ALANINE AMINOTRANSFERASE 15 U/L (12-78); ALBUMIN/GLOBULIN RATIO 0.1 (1.1-1.5); ALKALINE PHOSPHATASE 89 IU/L (46-116); ANION GAP 7 (8-16); ASPARTATE AMINO TRANSFERASE 19 U/L (10-37); BILIRUBIN,TOTAL 0.4 MG/DL (0.1-1.0); BLOOD UREA NITROGEN 50 MG/DL (7-18); BUN/CREATININE RATIO 7.8 (6.6-38.0); CALCIUM 7.8 MG/DL (8.5-10.1); CHLORIDE 95 MMOL/L (99-107); CREATININE 6.43 MG/DL (0.40-0.90); GLUCOSE 98 MG/DL (70-104); MAGNESIUM 2.3 MG/DL (1.5-2.4); PHOSPHORUS 3.1 MG/DL (2.3-4.5); POTASSIUM 4.1 MMOL/L (3.5-5.1); SODIUM 129 MMOL/L (135-145); TOTAL CARBON DIOXIDE 26.6 MMOL/L (24-32); TOTAL PROTEIN 10.1 G/DL (6.4-8.2); eGFR 6 ML/MIN
[2021-06-09] MEDS: K and/or MAG REPLACEMENT MC SCH ×2 (08:00→12:41)
[2021-06-09] MEDS: levoTHYROXINE 75mcg tablet PO SCH (08:17)
[2021-06-09] MEDS: pantoprazole 40mg Tablet.DR PO SCH (08:19)
[2021-06-09] MEDS: cloNIDine 0.1 mg tablet PO SCH ×3 (08:19→19:00)
[2021-06-09] MEDS: atorvastatin 20mg tablet PO SCH (08:19)
[2021-06-09] MEDS: losartan 50mg tablet PO SCH (08:19)
[2021-06-09] MEDS: sucralfate 1 gm tablet PO SCH ×4 (08:19→19:02)
[2021-06-09] MEDS: raloxifene 60mg tablet PO SCH (08:20)
[2021-06-09] MEDS: NUT.TX.IMP.RENAL FXN,LAC-REDUC (Nepro) 237 ML VANILLA PO SCH ×3 (08:35→18:49)
[2021-06-09] MEDS: clotrimazole topical cream 15gm tube TP SCH ×3 (08:35→18:50)
[2021-06-09] MEDS: nystatin 15 GM powder TP SCH ×3 (08:35→18:49)
[2021-06-09] MEDS ORDERED: LIDOcaine 1% W/epiNEPHrine 1:200,000 10ml vial ONE (10:11)
[2021-06-09] MEDS ORDERED: heparin 1,000unit/ml 10ml vial 10 ML ONE (10:11)
[2021-06-09] MEDS ORDERED: LIDOcaine 1%/PF 5ML 10 MG/ML VIAL ONE (10:12)
[2021-06-09] MEDS ORDERED: fentaNYL/PF 50MCG/1 ML 2ML syringe ONE (10:56)
[2021-06-09 11:00] VITALS: BP 103/61
[2021-06-09] MEDS ORDERED: iohexol 300 MG/1 ML 50ml polymer ONE (11:12)
[2021-06-09 11:34] LABS: TOTAL CELLS COUNTED 100
[2021-06-09 11:35] LABS: ANISOCYTOSIS 1+; PLATELET ESTIMATE DECREASED; ROULEAUX 1+
[2021-06-09] MEDS ORDERED: albumin (human) 25% 100ml IV 100 ML IV PRN (11:50)
[2021-06-09] MEDS ORDERED: EPOETIN ALFA-EPBX 20,000 UNIT/ML 1 ML MDV IV ONE (11:50)
[2021-06-09] MEDS ORDERED: heparin 1,000unit/ml 10ml vial 10 ML IV ONE (11:50)
[2021-06-09] MEDS ORDERED: heparin 1,000 units/ml 10ml inj HE ONE ×2 (11:55)
--- NOTE | 2021-06-09 12:35 | NUR ---
Reassessment: Pt s/p TDC exchange today. Patient's PO intake is slightly improved with average 25-50% PO intake of meals on renal diet. Pt now receiving Nepro TID, documented with 50% PO intake of first ONS though refused the two following then with average 63% two most recent ONS. Pt seen at bedside, reports appetite is improving and states she doesn't really like the food but knows protein intake is important so she is trying to make more of an effort to consume ONS. RD encouraged PO intake of meals with emphasis on Nepro if unable to consume much of meals. Pt reports she normally is not a big eater and denies food allergies, food preferences, or difficulties with chewing/swallowing. RD contact information provided and pt encouraged to reach out if needed. LBM 06/07. Will continue to follow closely. Recommendations: 1) Continue renal diet; MM5 per dietary-monitor need for texture modification 2) Nepro TIDWM 3) Bowel care PRN 4) Scaled weights with dialysis Addendum: 06/09/21 at [address] Amended: Links added.
[2021-06-09 15:00] VITALS: BP 147/54
[2021-06-09 18:00] VITALS: BP 135/57
--- NOTE | 2021-06-09 18:11 | NUR ---
Patient in room PCU 3022. I have received report from Mandi MATTHEW and had the opportunity to ask questions and assume patient care.
--- NOTE | 2021-06-09 18:36 | NUR ---
Problems reprioritized. Patient report given, questions answered & plan of care reviewed with Day MATTHEW.
[2021-06-09 22:00] VITALS: BP 137/55
[2021-06-10] VITALS (7 sets, daily range): BP systolic 121–148; BP diastolic 61–75
[2021-06-10] MEDS: acetaminophen 325mg tablet PO PRN (04:43)
--- NOTE | 2021-06-10 05:58 | NUR ---
Problems reprioritized. Patient report given, questions answered & plan of care reviewed with NORBERT MATTHEW.
[2021-06-10 06:52] LABS: BASOPHILS % (AUTO) 0.1 % (0-1); HEMOGLOBIN 7.2 g/dl (12.0-16.0); LYMPHOCYTES # (AUTO) 0.4 X10'3 (1.1-4.8); LYMPHOCYTES % (AUTO) 15.9 % (21-51); MEAN CORPUSCULAR HEMOGLOBIN 30.9 PG (27.0-31.0); MEAN CORPUSCULAR HGB CONC 34.1 g/dL (33.0-36.5); MEAN CORPUSCULAR VOLUME 90.8 FL (78-98); MEAN PLATELET VOLUME 8.5 FL (7.4-10.4); MONOCYTES # (AUTO) 0.1 X10'3 (0-0.9); MONOCYTES % (AUTO) 2.4 % (2-12); NEUTROPHILS # (AUTO) 2.1 X10'3 (1.8-7.7); NEUTROPHILS % (AUTO) 80.6 % (42-75); PLATELET COUNT 66 X10'3 (140-440); RED BLOOD COUNT 2.32 X10'6 (4.20-5.60); RED CELL DISTRIBUTION WIDTH 17.6 % (11.5-14.5); WHITE BLOOD COUNT 2.6 X10'3 (4.5-11.0)
[2021-06-10 07:04] LABS: HEMATOCRIT 21.1 % (35.0-45.0)
[2021-06-10 07:11] LABS: ALANINE AMINOTRANSFERASE 14 U/L (12-78); ALBUMIN/GLOBULIN RATIO 0.1 (1.1-1.5); ALKALINE PHOSPHATASE 95 IU/L (46-116); ANION GAP 6 (8-16); ASPARTATE AMINO TRANSFERASE 22 U/L (10-37); BILIRUBIN,TOTAL 0.4 MG/DL (0.1-1.0); CHLORIDE 98 MMOL/L (99-107); GLUCOSE 111 MG/DL (70-104); MAGNESIUM 2.2 MG/DL (1.5-2.4); PHOSPHORUS 2.6 MG/DL (2.3-4.5); SODIUM 132 MMOL/L (135-145); TOTAL CARBON DIOXIDE 28.4 MMOL/L (24-32)
[2021-06-10 07:28] LABS: BUN/CREATININE RATIO 6.9 (6.6-38.0)
--- NOTE | 2021-06-10 07:28 | NUR ---
critical lab value Called Dr. Hernandez left voicemail with critical, HCT 21.1
[2021-06-10 07:39] LABS: BLOOD UREA NITROGEN 30 MG/DL (7-18); CREATININE 4.32 MG/DL (0.40-0.90); eGFR 10 ML/MIN
[2021-06-10] MEDS: K and/or MAG REPLACEMENT MC SCH ×2 (08:00→20:00)
[2021-06-10] MEDS: cloNIDine 0.1 mg tablet PO SCH ×4 (08:00→21:02)
[2021-06-10] MEDS: sucralfate 1 gm tablet PO SCH ×4 (08:14→21:01)
[2021-06-10] MEDS: levoTHYROXINE 75mcg tablet PO SCH (08:14)
[2021-06-10] MEDS: losartan 50mg tablet PO SCH (08:15)
[2021-06-10] MEDS: atorvastatin 20mg tablet PO SCH (08:15)
[2021-06-10] MEDS: raloxifene 60mg tablet PO SCH (08:17)
[2021-06-10] MEDS: nystatin 15 GM powder TP SCH ×3 (08:19→21:01)
[2021-06-10] MEDS: NUT.TX.IMP.RENAL FXN,LAC-REDUC (Nepro) 237 ML VANILLA PO SCH ×4 (08:20→19:45)
[2021-06-10] MEDS: pantoprazole 40mg Tablet.DR PO SCH (08:23)
[2021-06-10 08:30] LABS: TOTAL CELLS COUNTED 100
[2021-06-10 08:31] LABS: ANISOCYTOSIS 1+; PLATELET ESTIMATE DECREASED; ROULEAUX 2+
--- NOTE | 2021-06-10 18:43 | NUR ---
Problems reprioritized. Patient report given, questions answered & plan of care reviewed with Wayne RN.
[2021-06-10] MEDS: clotrimazole topical cream 15gm tube TP SCH (21:03)
[2021-06-11] VITALS (10 sets, daily range): BP systolic 110–147; BP diastolic 52–89
[2021-06-11 06:26] LABS: BASOPHILS % (AUTO) 0.1 % (0-1); LYMPHOCYTES # (AUTO) 0.4 X10'3 (1.1-4.8); LYMPHOCYTES % (AUTO) 22.3 % (21-51); MEAN CORPUSCULAR HEMOGLOBIN 31.1 PG (27.0-31.0); MEAN CORPUSCULAR HGB CONC 33.6 g/dL (33.0-36.5); MEAN CORPUSCULAR VOLUME 92.4 FL (78-98); MEAN PLATELET VOLUME 8.9 FL (7.4-10.4); MONOCYTES # (AUTO) 0.1 X10'3 (0-0.9); MONOCYTES % (AUTO) 3.3 % (2-12); NEUTROPHILS # (AUTO) 1.2 X10'3 (1.8-7.7); NEUTROPHILS % (AUTO) 73.3 % (42-75); PLATELET COUNT 61 X10'3 (140-440); RED CELL DISTRIBUTION WIDTH 17.6 % (11.5-14.5); WHITE BLOOD COUNT 1.7 X10'3 (4.5-11.0)
[2021-06-11 06:32] LABS: HEMATOCRIT 20.4 % (35.0-45.0); HEMOGLOBIN 6.8 g/dl (12.0-16.0)
--- NOTE | 2021-06-11 06:34 | NUR ---
Patient in room PCU 3022. I have received report from Wayne MATTHEW and had the opportunity to ask questions and assume patient care.
--- NOTE | 2021-06-11 06:34 | NUR ---
CALL LIGHT PLACED WITHIN REACH OF PATIENT. NO SIGNS OF DISTRESS NOTED AT THIS TIME. PATIENT RESTING IN ROOM. ASSESSMENT AND VITAL SIGNS DOCUMENTED. REPORT GIVEN TO AM NURSE.
--- NOTE | 2021-06-11 07:03 | NUR ---
Telephone order from DR. Wakefield to transfuse 1 unit PRBC for H/H 6.8/20.4
[2021-06-11 07:05] LABS: ALANINE AMINOTRANSFERASE 19 U/L (12-78); ALBUMIN/GLOBULIN RATIO 0.1 (1.1-1.5); ALKALINE PHOSPHATASE 109 IU/L (46-116); ANION GAP 5 (8-16); ASPARTATE AMINO TRANSFERASE 27 U/L (10-37); BILIRUBIN,TOTAL 0.5 MG/DL (0.1-1.0); BLOOD UREA NITROGEN 47 MG/DL (7-18); CALCIUM 8.3 MG/DL (8.5-10.1); CHLORIDE 98 MMOL/L (99-107); GLUCOSE 83 MG/DL (70-104); MAGNESIUM 2.1 MG/DL (1.5-2.4); PHOSPHORUS 2.5 MG/DL (2.3-4.5); POTASSIUM 4.3 MMOL/L (3.5-5.1); SODIUM 130 MMOL/L (135-145); TOTAL CARBON DIOXIDE 26.8 MMOL/L (24-32); TOTAL PROTEIN 10.4 G/DL (6.4-8.2); eGFR 7 ML/MIN
[2021-06-11] MEDS: atorvastatin 20mg tablet PO SCH (07:45)
[2021-06-11] MEDS: levoTHYROXINE 75mcg tablet PO SCH (07:46)
[2021-06-11] MEDS: raloxifene 60mg tablet PO SCH (07:47)
[2021-06-11] MEDS: losartan 50mg tablet PO SCH (07:47)
[2021-06-11] MEDS: pantoprazole 40mg Tablet.DR PO SCH (07:47)
[2021-06-11] MEDS: nystatin 15 GM powder TP SCH ×3 (07:47→20:22)
[2021-06-11] MEDS: acetaminophen 325mg tablet PO PRN ×2 (07:47→20:43)
[2021-06-11] MEDS: sucralfate 1 gm tablet PO SCH ×4 (07:47→20:19)
[2021-06-11] MEDS: K and/or MAG REPLACEMENT MC SCH ×2 (07:48→20:00)
[2021-06-11] MEDS: clotrimazole topical cream 15gm tube TP SCH ×2 (07:48→20:00)
[2021-06-11] MEDS: cloNIDine 0.1 mg tablet PO SCH ×3 (07:48→21:00)
[2021-06-11 10:55] LABS: NUCLEATED RED BLOOD CELLS 2 /100WBC (0-0); TOTAL CELLS COUNTED 100
[2021-06-11 10:56] LABS: ANISOCYTOSIS 1+; PLATELET ESTIMATE DECREASED; POLYCHROMASIA 1+
[2021-06-11] MEDS: NUT.TX.IMP.RENAL FXN,LAC-REDUC (Nepro) 237 ML VANILLA PO SCH ×2 (13:00→18:06)
[2021-06-11 17:47] LABS: HEMOGLOBIN 8.3 g/dl (12.0-16.0); MEAN CORPUSCULAR HEMOGLOBIN 30.2 PG (27.0-31.0); MEAN CORPUSCULAR HGB CONC 33.2 g/dL (33.0-36.5); MEAN CORPUSCULAR VOLUME 90.9 FL (78-98); MEAN PLATELET VOLUME 8.3 FL (7.4-10.4); PLATELET COUNT 55 X10'3 (140-440); RED BLOOD COUNT 2.75 X10'6 (4.20-5.60); RED CELL DISTRIBUTION WIDTH 17.5 % (11.5-14.5); WHITE BLOOD COUNT 1.5 X10'3 (4.5-11.0)
--- NOTE | 2021-06-11 18:04 | NUR ---
Unable to obtain daily weight due to patient unable to get up and bed scale broken
--- NOTE | 2021-06-11 18:12 | NUR ---
Problems reprioritized. Patient report given, questions answered & plan of care reviewed with Wayne RN.
--- NOTE | 2021-06-11 19:24 | NUR ---
Megan hospitalist. Notified patient heart rate sustaining between 140-180's. Will continue to monitor.
[2021-06-11] MEDS ORDERED: metoprolol tartrate 1mg/ml inj IV ONE (19:35)
--- NOTE | 2021-06-11 20:00 | NUR ---
PAGED REGARDING PATIENT TEMP OF 101.8. ORDERED BLOOD CULTURES AND ECHOCARDIOGRAM. WILL CONTINUE TO MONITOR.
[2021-06-12 02:00] VITALS: BP 116/58
--- NOTE | 2021-06-12 06:28 | NUR ---
CALL LIGHT PLACED WITHIN REACH. PER TELEMETRY PATIENT EXPERIENCED AFIB WITH RVR DURING SHIFT. MD NOTIFIED. NO OTHER SIGNS OF DISTRESS NOTED AT THIS TIME. PATIENT HAD BOWEL MOVEMENT X 2 DURING SHIFT. JARVIS CARE PERFORMED PER ORDER. PATIENT AWARE OF PLAN OF CARE. REPORT GIVEN TO AM NURSE.
[2021-06-12 07:00] VITALS: BP 142/60
[2021-06-12 07:59] LABS: LYMPHOCYTES # (AUTO) 0.3 X10'3 (1.1-4.8)
[2021-06-12] MEDS ORDERED: heparin 1,000 units/ml 10ml inj HE ONE ×2 (08:00)
[2021-06-12] MEDS: NUT.TX.IMP.RENAL FXN,LAC-REDUC (Nepro) 237 ML VANILLA PO SCH ×3 (08:00→18:00)
[2021-06-12] MEDS: cloNIDine 0.1 mg tablet PO SCH ×3 (08:00→21:00)
[2021-06-12] MEDS: K and/or MAG REPLACEMENT MC SCH ×2 (08:00→20:00)
[2021-06-12] MEDS ORDERED: albumin (human) 25% 100ml IV 100 ML IV PRN (08:00)
[2021-06-12] MEDS ORDERED: EPOETIN ALFA-EPBX 20,000 UNIT/ML 1 ML MDV IV ONE (08:00)
[2021-06-12] MEDS: nystatin 15 GM powder TP SCH ×3 (08:00→21:31)
[2021-06-12] MEDS: clotrimazole topical cream 15gm tube TP SCH ×2 (08:00→21:39)
[2021-06-12 08:03] LABS: BASOPHILS % (AUTO) 0.2 % (0-1); EOSINOPHILS % (AUTO) 2.7 % (0-6); LYMPHOCYTES % (AUTO) 21.2 % (21-51); MEAN CORPUSCULAR HEMOGLOBIN 30.1 PG (27.0-31.0); MEAN CORPUSCULAR HGB CONC 33.2 g/dL (33.0-36.5); MEAN CORPUSCULAR VOLUME 90.7 FL (78-98); MEAN PLATELET VOLUME 9.1 FL (7.4-10.4); MONOCYTES % (AUTO) 2.7 % (2-12); NEUTROPHILS # (AUTO) 1.1 X10'3 (1.8-7.7); NEUTROPHILS % (AUTO) 73.2 % (42-75); PLATELET COUNT 53 X10'3 (140-440); RED BLOOD COUNT 2.65 X10'6 (4.20-5.60); RED CELL DISTRIBUTION WIDTH 17.3 % (11.5-14.5); WHITE BLOOD COUNT 1.5 X10'3 (4.5-11.0)
[2021-06-12 08:34] LABS: ALANINE AMINOTRANSFERASE 22 U/L (12-78); ALBUMIN/GLOBULIN RATIO 0.1 (1.1-1.5); ALKALINE PHOSPHATASE 111 IU/L (46-116); ANION GAP 10 (8-16); ASPARTATE AMINO TRANSFERASE 34 U/L (10-37); BILIRUBIN,TOTAL 0.6 MG/DL (0.1-1.0); BLOOD UREA NITROGEN 65 MG/DL (7-18); BUN/CREATININE RATIO 9.1 (6.6-38.0); CALCIUM 8.5 MG/DL (8.5-10.1); CHLORIDE 96 MMOL/L (99-107); CREATININE 7.16 MG/DL (0.40-0.90); GLUCOSE 85 MG/DL (70-104); MAGNESIUM 2.1 MG/DL (1.5-2.4); PHOSPHORUS 3.5 MG/DL (2.3-4.5); POTASSIUM 4.2 MMOL/L (3.5-5.1); SODIUM 131 MMOL/L (135-145); TOTAL CARBON DIOXIDE 25.3 MMOL/L (24-32); TOTAL PROTEIN 11.1 G/DL (6.4-8.2); eGFR 6 ML/MIN
[2021-06-12] MEDS: levoTHYROXINE 75mcg tablet PO SCH (09:08)
[2021-06-12] MEDS: raloxifene 60mg tablet PO SCH (09:08)
[2021-06-12] MEDS: losartan 50mg tablet PO SCH (09:08)
[2021-06-12] MEDS: sucralfate 1 gm tablet PO SCH ×4 (09:08→21:31)
[2021-06-12] MEDS: pantoprazole 40mg Tablet.DR PO SCH (09:08)
[2021-06-12 09:26] LABS: ANISOCYTOSIS 1+; PLATELET ESTIMATE DECREASED; ROULEAUX 1+; TOTAL CELLS COUNTED 100
[2021-06-12 11:00] VITALS: BP 132/68
[2021-06-12] MEDS ORDERED: TBO-filgrastim 300 MCG/0.5 ML inj. SQ ONE (11:25)
--- NOTE | 2021-06-12 13:50 | NUR ---
Reassessment: Pt continues w/ relatively low PO intake, avg 30% x 9 meals on Renal/MM5 diet and 57& x 7 ONS which meets 78% of est energy needs and 67% of est protein needs. Intake adequate w/ addition of ONS at this time. Pt to receive dialysis today per note. LBM 06/11. Will continue to monitor. Recommendations: 1) Continue renal diet; MM5 per dietary-monitor need for texture modification 2) Nepro TIDWM 3) Bowel care PRN 4) Scaled weights with dialysis Addendum: 06/12/21 at [address] Amended: Links added.
[2021-06-12 18:00] VITALS: BP 140/63
--- NOTE | 2021-06-12 18:30 | NUR ---
PATIENT REFUSED DINNER NEPRO. STATED SHE CONSUMED ONE DURING LUNCH AND COULD NOT DRINK HER DINNER TIME DOSE.
--- NOTE | 2021-06-12 19:07 | NUR ---
Problems reprioritized. Patient report given, questions answered & plan of care reviewed with Wayne RN.
[2021-06-12] MEDS: acetaminophen 325mg tablet PO PRN (21:32)
[2021-06-12 22:30] VITALS: BP 139/69
[2021-06-13 02:10] VITALS: BP 139/64
--- NOTE | 2021-06-13 02:39 | NUR ---
NOTIFIED OF PT BLOOD CULTURE RESULTS. ORDERED VANCOMYCIN TO BE DOSED BY PHARMACY. WILL CONTINUE TO MONITOR.
[2021-06-13] MEDS ORDERED: vancomycin/NS 1 GM ADD-VANTAGE 250 ML IV PRN (03:20)
[2021-06-13] MEDS ORDERED: vancomycin/NS 1 GM ADD-VANTAGE 250 ML IV ONE (03:20)
--- NOTE | 2021-06-13 05:14 | NUR ---
NOTIFIED MD OF SECOND POSITIVE BLOOD CULTURE. NO NEW ORDERS AT THIS TIME.
--- NOTE | 2021-06-13 05:36 | NUR ---
PATIENT IN BED RESTING AT THIS TIME. NO SIGNS OF DISTRESS NOTED. VSS THROUGHOUT SHIFT. PERICARE FOR CATHETER PLACEMENT PERFORMED DURING SHIFT. PATIENT HAD BOWEL MOVEMENT X 2. IV ABX STARTED PER ORDER. PATIENT AWARE OF PLAN OF CARE. CALL LIGHT AND PERSONAL BELONGINGS PLACED WITHIN REACH. INSTRUCTED TO CALL FOR ASSISTANCE. ASSESSMENT AND VITAL SIGNS CHARTED IN INTERVENTIONS.
[2021-06-13 06:00] VITALS: BP 130/90
[2021-06-13 06:54] LABS: EOSINOPHILS % (AUTO) 1.1 % (0-6); HEMATOCRIT 29.4 % (35.0-45.0); HEMOGLOBIN 9.8 g/dl (12.0-16.0); LYMPHOCYTES # (AUTO) 0.5 X10'3 (1.1-4.8); LYMPHOCYTES % (AUTO) 26.9 % (21-51); MEAN CORPUSCULAR HEMOGLOBIN 30.2 PG (27.0-31.0); MEAN CORPUSCULAR HGB CONC 33.3 g/dL (33.0-36.5); MEAN CORPUSCULAR VOLUME 90.8 FL (78-98); MEAN PLATELET VOLUME 8.7 FL (7.4-10.4); MONOCYTES % (AUTO) 2.4 % (2-12); NEUTROPHILS # (AUTO) 1.2 X10'3 (1.8-7.7); NEUTROPHILS % (AUTO) 68.6 % (42-75); PLATELET COUNT 60 X10'3 (140-440); RED BLOOD COUNT 3.24 X10'6 (4.20-5.60); RED CELL DISTRIBUTION WIDTH 17.5 % (11.5-14.5); WHITE BLOOD COUNT 1.7 X10'3 (4.5-11.0)
[2021-06-13 07:22] LABS: ALANINE AMINOTRANSFERASE 22 U/L (12-78); ALBUMIN 1.1 G/DL (3.4-5.0); ALBUMIN/GLOBULIN RATIO 0.1 (1.1-1.5); ALKALINE PHOSPHATASE 108 IU/L (46-116); ANION GAP 8 (8-16); ASPARTATE AMINO TRANSFERASE 46 U/L (10-37); BILIRUBIN,TOTAL 0.6 MG/DL (0.1-1.0); BLOOD UREA NITROGEN 34 MG/DL (7-18); BUN/CREATININE RATIO 7.7 (6.6-38.0); CALCIUM 8.6 MG/DL (8.5-10.1); CHLORIDE 100 MMOL/L (99-107); GLUCOSE 85 MG/DL (70-104); PHOSPHORUS 1.9 MG/DL (2.3-4.5); POTASSIUM 3.5 MMOL/L (3.5-5.1); SODIUM 134 MMOL/L (135-145); TOTAL CARBON DIOXIDE 26.1 MMOL/L (24-32); TOTAL PROTEIN 11.8 G/DL (6.4-8.2); eGFR 10 ML/MIN
[2021-06-13] MEDS ORDERED: amiodarone 150mg/dext, iso-os 100 ML IV ONE (07:25)
[2021-06-13] MEDS ORDERED: amiodarone/D5 360MG/200ML BAG 200 ML IV SCH (07:25)
[2021-06-13 07:36] LABS: ANISOCYTOSIS 1+; NUCLEATED RED BLOOD CELLS 4 /100WBC (0-0); PLATELET ESTIMATE DECREASED; ROULEAUX 1+; TOTAL CELLS COUNTED 100
[2021-06-13 07:53] LABS: TROPONIN I < 0.04 NG/ML (0.0-0.05)
[2021-06-13] MEDS: clotrimazole topical cream 15gm tube TP SCH ×2 (08:00→20:41)
[2021-06-13] MEDS: NUT.TX.IMP.RENAL FXN,LAC-REDUC (Nepro) 237 ML VANILLA PO SCH ×3 (08:00→20:46)
[2021-06-13] MEDS: K and/or MAG REPLACEMENT MC SCH ×2 (08:00→20:00)
[2021-06-13] MEDS: cloNIDine 0.1 mg tablet PO SCH ×3 (08:15→20:41)
[2021-06-13] MEDS: sucralfate 1 gm tablet PO SCH ×4 (08:15→20:36)
[2021-06-13] MEDS: nystatin 15 GM powder TP SCH ×3 (08:16→20:37)
[2021-06-13] MEDS: raloxifene 60mg tablet PO SCH (08:16)
[2021-06-13] MEDS: levoTHYROXINE 75mcg tablet PO SCH (08:16)
[2021-06-13] MEDS: pantoprazole 40mg Tablet.DR PO SCH (08:16)
[2021-06-13] MEDS: losartan 50mg tablet PO SCH (08:16)
[2021-06-13 11:00] VITALS: BP 124/67
[2021-06-13] MEDS: amiodarone 200mg tablet PO SCH ×2 (12:11→20:36)
[2021-06-13 15:00] VITALS: BP 118/67
--- NOTE | 2021-06-13 15:37 | NUR ---
Patient in room PCU 3022. I have received report from TIFF BARKSDALE, and had the opportunity to ask questions and assume patient care.
[2021-06-13 18:00] VITALS: BP 124/63
--- NOTE | 2021-06-13 18:35 | NUR ---
Problems reprioritized. Patient report given, questions answered & plan of care reviewed with TIFF DUARTE.
[2021-06-13 22:00] VITALS: BP 132/94
[2021-06-14] VITALS (8 sets, daily range): BP systolic 105–154; BP diastolic 57–68
[2021-06-14] MEDS: VANCOMYCIN LEVEL IV SCH (03:00)
--- NOTE | 2021-06-14 03:45 | NUR ---
Patient in bed resting no signs of distress noted , vital signs stable will continue to monitor and report changes
[2021-06-14 06:20] LABS: BASOPHILS % (AUTO) 0.2 % (0-1); EOSINOPHILS # (AUTO) 0.1 X10'3 (0-0.9); EOSINOPHILS % (AUTO) 3.2 % (0-6); HEMOGLOBIN 8.2 g/dl (12.0-16.0); LYMPHOCYTES # (AUTO) 0.6 X10'3 (1.1-4.8); LYMPHOCYTES % (AUTO) 33.2 % (21-51); MEAN CORPUSCULAR HEMOGLOBIN 30.5 PG (27.0-31.0); MEAN CORPUSCULAR VOLUME 89.5 FL (78-98); MEAN PLATELET VOLUME 8.7 FL (7.4-10.4); MONOCYTES # (AUTO) 0.1 X10'3 (0-0.9); MONOCYTES % (AUTO) 2.9 % (2-12); NEUTROPHILS # (AUTO) 1.1 X10'3 (1.8-7.7); NEUTROPHILS % (AUTO) 60.5 % (42-75); PLATELET COUNT 53 X10'3 (140-440); RED BLOOD COUNT 2.68 X10'6 (4.20-5.60); RED CELL DISTRIBUTION WIDTH 17.7 % (11.5-14.5); WHITE BLOOD COUNT 1.9 X10'3 (4.5-11.0)
--- NOTE | 2021-06-14 06:25 | NUR ---
Patient in room PCU 3022. I have received report from TIFF DUARTE, and had the opportunity to ask questions and assume patient care.
--- NOTE | 2021-06-14 06:30 | NUR ---
Problems reprioritized. Patient report given, questions answered & plan of care reviewed with Krystle MATTHEW.
[2021-06-14 06:47] LABS: ANION GAP 9 (8-16); BLOOD UREA NITROGEN 53 MG/DL (7-18); BUN/CREATININE RATIO 9.5 (6.6-38.0); CALCIUM 8.1 MG/DL (8.5-10.1); CHLORIDE 99 MMOL/L (99-107); CREATININE 5.55 MG/DL (0.40-0.90); GLUCOSE 79 MG/DL (70-104); MAGNESIUM 1.8 MG/DL (1.5-2.4); PHOSPHORUS 2.5 MG/DL (2.3-4.5); SODIUM 133 MMOL/L (135-145); TOTAL CARBON DIOXIDE 25.1 MMOL/L (24-32); eGFR 7 ML/MIN
[2021-06-14 06:48] LABS: ALANINE AMINOTRANSFERASE 21 U/L (12-78); ALBUMIN/GLOBULIN RATIO 0.1 (1.1-1.5); ALKALINE PHOSPHATASE 83 IU/L (46-116); ASPARTATE AMINO TRANSFERASE 26 U/L (10-37); BILIRUBIN,TOTAL 0.4 MG/DL (0.1-1.0); TOTAL PROTEIN 10.6 G/DL (6.4-8.2); VANCOMYCIN,RANDOM 16.6 UG/ML
[2021-06-14] MEDS ORDERED: heparin 1,000 units/ml 10ml inj IV ONE (07:50)
[2021-06-14] MEDS ORDERED: heparin 1,000unit/ml 10ml vial 10 ML IV ONE (07:50)
[2021-06-14] MEDS ORDERED: albumin (human) 25% 100ml IV 100 ML IV PRN (07:50)
[2021-06-14] MEDS ORDERED: EPOETIN ALFA-EPBX 20,000 UNIT/ML 1 ML MDV IV ONE (07:50)
[2021-06-14] MEDS ORDERED: TBO-filgrastim 480 MCG/0.8ml syringe SQ ONE (07:55)
[2021-06-14] MEDS ORDERED: heparin 1,000 units/ml 10ml inj HE ONE ×2 (07:55)
[2021-06-14] MEDS: K and/or MAG REPLACEMENT MC SCH ×2 (08:00→19:18)
[2021-06-14] MEDS: raloxifene 60mg tablet PO SCH (08:44)
[2021-06-14] MEDS: sucralfate 1 gm tablet PO SCH ×4 (08:44→20:59)
[2021-06-14] MEDS: levoTHYROXINE 75mcg tablet PO SCH (08:44)
[2021-06-14] MEDS: amiodarone 200mg tablet PO SCH ×2 (08:45→20:53)
[2021-06-14] MEDS: cloNIDine 0.1 mg tablet PO SCH ×3 (08:45→21:46)
[2021-06-14] MEDS: pantoprazole 40mg Tablet.DR PO SCH (08:45)
[2021-06-14] MEDS: clotrimazole topical cream 15gm tube TP SCH ×2 (08:46→20:59)
[2021-06-14] MEDS: losartan 50mg tablet PO SCH (08:46)
[2021-06-14] MEDS: nystatin 15 GM powder TP SCH ×3 (08:46→20:59)
[2021-06-14] MEDS: NUT.TX.IMP.RENAL FXN,LAC-REDUC (Nepro) 237 ML VANILLA PO SCH ×3 (08:46→18:00)
[2021-06-14 11:16] LABS: TOTAL CELLS COUNTED 100
[2021-06-14 11:17] LABS: ANISOCYTOSIS 1+; PLATELET ESTIMATE DECREASED
--- NOTE | 2021-06-14 17:00 | NUR ---
PT HAD K OF 3.4, AWARE.
--- NOTE | 2021-06-14 18:39 | NUR ---
Problems reprioritized. Patient report given, questions answered & plan of care reviewed with TIFF PATRICK.
[2021-06-15 02:00] VITALS: BP 151/62
[2021-06-15] MEDS: VANCOMYCIN LEVEL IV SCH (03:00)
[2021-06-15 06:00] VITALS: BP 146/63
--- NOTE | 2021-06-15 06:34 | NUR ---
Patient in room PCU 3022. I have received report from TIFF E[place], and had the opportunity to ask questions and assume patient care.
[2021-06-15] MEDS: levoTHYROXINE 75mcg tablet PO SCH (06:57)
[2021-06-15 07:27] LABS: EOSINOPHILS # (AUTO) 0.1 X10'3 (0-0.9); HEMOGLOBIN 8.5 g/dl (12.0-16.0); LYMPHOCYTES # (AUTO) 0.8 X10'3 (1.1-4.8); WHITE BLOOD COUNT 3.6 X10'3 (4.5-11.0)
[2021-06-15 07:30] LABS: BASOPHILS % (AUTO) 0.2 % (0-1); HEMATOCRIT 25.1 % (35.0-45.0); MEAN CORPUSCULAR HEMOGLOBIN 30.2 PG (27.0-31.0); MEAN CORPUSCULAR VOLUME 88.9 FL (78-98); MEAN PLATELET VOLUME 8.7 FL (7.4-10.4); MONOCYTES % (AUTO) 0.9 % (2-12); NEUTROPHILS # (AUTO) 2.7 X10'3 (1.8-7.7); NEUTROPHILS % (AUTO) 74.9 % (42-75); PLATELET COUNT 60 X10'3 (140-440); RED BLOOD COUNT 2.82 X10'6 (4.20-5.60); RED CELL DISTRIBUTION WIDTH 17.7 % (11.5-14.5)
[2021-06-15 07:52] LABS: ANION GAP 7 (8-16); BLOOD UREA NITROGEN 34 MG/DL (7-18); CHLORIDE 97 MMOL/L (99-107); CREATININE 4.06 MG/DL (0.40-0.90); GLUCOSE 77 MG/DL (70-104); POTASSIUM 4.6 MMOL/L (3.5-5.1); SODIUM 132 MMOL/L (135-145); TOTAL CARBON DIOXIDE 27.9 MMOL/L (24-32)
[2021-06-15 07:53] LABS: ALANINE AMINOTRANSFERASE 20 U/L (12-78); ALBUMIN 1.1 G/DL (3.4-5.0); ALBUMIN/GLOBULIN RATIO 0.1 (1.1-1.5); ALKALINE PHOSPHATASE 72 IU/L (46-116); ASPARTATE AMINO TRANSFERASE 29 U/L (10-37); BILIRUBIN,TOTAL 0.5 MG/DL (0.1-1.0); BUN/CREATININE RATIO 8.4 (6.6-38.0); CALCIUM 8.5 MG/DL (8.5-10.1); MAGNESIUM 1.7 MG/DL (1.5-2.4); PHOSPHORUS 2.1 MG/DL (2.3-4.5); TOTAL PROTEIN 11.9 G/DL (6.4-8.2); VANCOMYCIN,RANDOM 11.2 UG/ML; eGFR 11 ML/MIN
[2021-06-15] MEDS: K and/or MAG REPLACEMENT MC SCH (08:00)
[2021-06-15] MEDS: raloxifene 60mg tablet PO SCH (08:33)
[2021-06-15] MEDS: sucralfate 1 gm tablet PO SCH ×2 (08:33→12:26)
[2021-06-15] MEDS: losartan 50mg tablet PO SCH (08:33)
[2021-06-15] MEDS: amiodarone 200mg tablet PO SCH (08:33)
[2021-06-15] MEDS: cloNIDine 0.1 mg tablet PO SCH ×2 (08:34→13:00)
[2021-06-15] MEDS: pantoprazole 40mg Tablet.DR PO SCH (08:34)
[2021-06-15 08:38] LABS: ANISOCYTOSIS 1+; PLATELET ESTIMATE DECREASED; TOTAL CELLS COUNTED 100
[2021-06-15] MEDS: clotrimazole topical cream 15gm tube TP SCH (08:38)
[2021-06-15] MEDS: NUT.TX.IMP.RENAL FXN,LAC-REDUC (Nepro) 237 ML VANILLA PO SCH ×3 (08:38→14:37)
[2021-06-15] MEDS: nystatin 15 GM powder TP SCH ×2 (08:38→13:00)
[2021-06-15] MEDS ORDERED: dexamethasone 4mg/ml inj IV STA (11:35)
[2021-06-15] MEDS ORDERED: vancomycin/NS 1 GM ADD-VANTAGE 250 ML IV ONE (11:45)
[2021-06-15] MEDS ORDERED: ondansetron 4mg rapidly disintigrating tab PO PRN (13:25)
[2021-06-15] MEDS ORDERED: NORMAL SALINE IV SCH (14:16)
[2021-06-15] MEDS ORDERED: DEXAMETHASONE IV SCH (14:16)
[2021-06-15 15:00] VITALS: BP 89/52
--- NOTE | 2021-06-15 15:30 | NUR ---
PT WAS TRANSPORTED TO [facility] BY A HOSPITAL TRANPORT TEAM. HAND OFF WAS GIVEN TO [facility] NURSE ROSA. PT LEFT BEFORE PHARMACY BROUGHT UP [place], ATTEMPTED TO NOTIFY AND NOTIFIED TIFF LEE. PAPER WORK PLACED IN PT'S CHART.
[2021-06-16] MEDS ORDERED: dexamethasone sod phosphate 10mg/ml inj IV SCH (08:00)
== END 2021-06-15 15:00 | disposition short-term general hospital (02) | DRG 840 ==
LOC: ER 18:51 → ED HOLD 23:20 → PCU 3S 06-03 01:05
PROVIDERS: ADMIT Internal Medicine; ATTEND Internal Medicine
PROC: 30233N1 Transfusion of Nonautologous Red Blood Cells into Peripheral Vein, Percutaneous Approach (ICD-10-PCS; 2021-06-03)
PROC: 0JH63XZ Insertion of Tunneled Vascular Access Device into Chest Subcutaneous Tissue and Fascia, Percutaneous Approach (ICD-10-PCS; 2021-06-04)
PROC: 02H633Z Insertion of Infusion Device into Right Atrium, Percutaneous Approach (ICD-10-PCS; 2021-06-04)
PROC: B548ZZA Ultrasonography of Superior Vena Cava, Guidance (ICD-10-PCS; 2021-06-04)
PROC: B5181ZA Fluoroscopy of Superior Vena Cava using Low Osmolar Contrast, Guidance (ICD-10-PCS; 2021-06-04)
PROC: 5A1D70Z Performance of Urinary Filtration, Intermittent, Less than 6 Hours Per Day (ICD-10-PCS; 2021-06-04)
PROC: CW1 Nuclear Medicine, Anatomical Regions, Planar Nuclear Medicine Imaging (ICD-10-PCS; 2021-06-04)
PROC: 5A1D70Z Performance of Urinary Filtration, Intermittent, Less than 6 Hours Per Day (ICD-10-PCS; 2021-06-05)
PROC: 5A1D70Z Performance of Urinary Filtration, Intermittent, Less than 6 Hours Per Day (ICD-10-PCS; 2021-06-06)
PROC: 5A1D70Z Performance of Urinary Filtration, Intermittent, Less than 6 Hours Per Day (ICD-10-PCS; 2021-06-08)
PROC: 0J2TXYZ Change Other Device in Trunk Subcutaneous Tissue and Fascia, External Approach (ICD-10-PCS; 2021-06-09)
PROC: 02HV33Z Insertion of Infusion Device into Superior Vena Cava, Percutaneous Approach (ICD-10-PCS; 2021-06-09)
PROC: B5181ZA Fluoroscopy of Superior Vena Cava using Low Osmolar Contrast, Guidance (ICD-10-PCS; 2021-06-09)
PROC: 5A1D70Z Performance of Urinary Filtration, Intermittent, Less than 6 Hours Per Day (ICD-10-PCS; 2021-06-09)
PROC: 07DT3ZX Extraction of Bone Marrow, Percutaneous Approach, Diagnostic (ICD-10-PCS; principal; 2021-06-12)
PROC: 5A1D70Z Performance of Urinary Filtration, Intermittent, Less than 6 Hours Per Day (ICD-10-PCS; 2021-06-12)
PROC: 5A1D70Z Performance of Urinary Filtration, Intermittent, Less than 6 Hours Per Day (ICD-10-PCS; 2021-06-14)
DX: C90.00 Multiple myeloma not having achieved remission (principal); G93.41 Metabolic encephalopathy; N17.9 Acute kidney failure, unspecified; D61.818 Other pancytopenia; E87.2 Acidosis; E03.9 Hypothyroidism, unspecified; E86.0 Dehydration; K76.89 Other specified diseases of liver; R77.1 Abnormality of globulin; D18.00 Hemangioma unspecified site; I12.9 Hypertensive chronic kidney disease with stage 1 through stage 4 chronic kidney disease, or unspecified chronic kidney disease; N18.9 Chronic kidney disease, unspecified; Z20.822 Contact with and (suspected) exposure to COVID-19; I48.91 Unspecified atrial fibrillation; Z88.0 Allergy status to penicillin; Z99.2 Dependence on renal dialysis
CPT/HCPCS: 36415; 36430; 36558; 36581; 36600; 71045; 74176; 76700; 76937; 77001; 78707; 80053; 80202; 81001; 82232; 82550; 82570; 82728; 82784; 82803; 83540; 83550; 83605; 83615; 83735; 83935; 84100; 84145; 84155; 84156; 84165; 84300; 84443; 84484; 85007; 85008; 85018; 85025; 85027; 85045; 85610; 85730; 85999; 86160; 86334; 86704; 86706; 86880; 86885; 86900; 86901; 86922; 87040; 87077; 87088; 87186; 87207; 87340; 87635; 88184; 88185; 88305; 88311; 88313; 88342; 93005; 93306; 96365; 96366; 96376; 97110; 97116; 97162; 97530; 97535; 99152; 99153; 99285; A9270; A9562; C1750; C1769; C1894; C9113; G0257; G0378; J1442; J1644; J2150; J2250; J2405; J2997; J3010; J3370; J3475; J3490; P9016; Q4081; Q9967